=== PATIENT | male | born 1980 | race Caucasian/White ===

== ENCOUNTER → 2020-02-28 | Outpatient (CLI) | payer BC | END | disposition home or self-care (01) | LOC: LABWHC1 12:16 | PROVIDERS: ATTEND Internal Medicine Gastroenterology | DX: Z11.59 Encounter for screening for other viral diseases (principal) ==

== ENCOUNTER → 2020-03-01 | Day surgery (SDC) | payer BC ==
[2020-02-28 16:26] VITALS: BMI 43.7
[~2020-03-01] MED LIST: LACTATED RINGERS 1,000 ML IV SCH; LIDOCAINE 1% (10MG/ML) FOR IV START INTRADERMA PRN; LIDOCAINE 1% INJ 10MG/ML (20 ML MDV) ONE; PROPOFOL 10 MG/ML 20 ML VIAL IV ONE
[2020-03-01 08:23] VITALS: TEMP 97.1
--- NOTE | 2020-03-01 09:19 | P.PCN ---
Date of Procedure: 03/01/20 Procedure(s) Performed: BRIEF HISTORY: Patient is a 39-year-old pleasant white male scheduled for an elective colonoscopy as a part of evaluation change in bowel habits and family history of colon cancer. His grandmother was diagnosed with colon cancer at age 70. PROCEDURE PERFORMED: Colonoscopy. PREOPERATIVE DIAGNOSIS: Change in bowel habits and family history of colon cancer. IV sedation per Anesthesia. PROCEDURE: After informed consent was obtained, the patient, was brought into the endoscopy unit. IV sedation was administered by Anesthesia under continuous monitoring. Digital rectal examination was normal. Initially the Olympus CF-160 flexible video colonoscope was then inserted in the rectum, gradually advanced into the cecum without any difficulty. Careful examination was performed as the scope was gradually being withdrawn. Ileocecal valve and the appendiceal orifice were visualized and appeared normal. Prep was excellent. Mucosa of the cecum, ascending colon, transverse colon, descending colon, sigmoid colon, and rectum appeared normal. Retroflexion was performed in the rectum and no lesions were seen. The patient tolerated the procedure well. IMPRESSION: Normal-appearing colon from rectum to cecum with no evidence of colitis or colorectal neoplasia . RECOMMENDATIONS: Findings of this examination were discussed with the patient as well as his family. He was advised to have a repeat screening colonoscopy in 10 years.
[2020-03-01 09:25] VITALS: RESP 16
[2020-03-01 09:38] VITALS: BP 138/79; PULSE 72
== END ==
LOC: ORWHC2ENDO 08:00
PROVIDERS: ATTEND Internal Medicine Gastroenterology
DX: R19.4 Change in bowel habit (principal); Z80.0 Family history of malignant neoplasm of digestive organs; J45.909 Unspecified asthma, uncomplicated; F41.9 Anxiety disorder, unspecified; F90.9 Attention-deficit hyperactivity disorder, unspecified type; F41.0 Panic disorder [episodic paroxysmal anxiety]; K21.9 Gastro-esophageal reflux disease without esophagitis; E66.01 Morbid (severe) obesity due to excess calories; Z79.899 Other long term (current) drug therapy; Z68.45 Body mass index [BMI] 70 or greater, adult
CPT/HCPCS: 45378; J2001; J2704

== ENCOUNTER 2024-07-12 19:59 | Emergency (ER) | payer BC ==
[2024-07-12 20:15] VITALS: RESP 18; TEMP 98.1
[2024-07-12] MEDS: CYCLOBENZAPRINE 10 MG TAB PO STA (22:20)
[2024-07-12] MEDS: LIDOCAINE 4% PATCH TOPICAL ONE (22:21)
[2024-07-12] MEDS: KETOROLAC 15 MG/ML 1 ML VIAL IM STA (22:22)
[2024-07-12] MEDS: MORPHINE SULFATE 4 MG/ML SYRINGE IM STA (23:53)
[2024-07-12] MEDS: predniSONE 20 MG TAB PO STA (23:56)
--- NOTE | 2024-07-13 00:34 | ED ---
Back Pain HPI - General Chief Complaint: Back Pain/Injury Stated Complaint: Back Pain Source: patient Limitations: no limitations - Related Data Home Medications Medication Instructions Recorded Confirmed ALPRAZolam [Xanax] 1 mg PO BID PRN 02/28/20 02/28/20 Albuterol Inhaler [Ventolin Hfa 2 puff INHALATION RT-QID PRN 02/28/20 03/01/20 Inhaler] Cholecalciferol [Vitamin D3 (25 5,000 unit PO DAILY 02/28/20 03/01/20 Mcg = 1000 Iu)] Dextroamphetamine/Amphetamine 20 mg PO BID 02/28/20 03/01/20 [Adderall] Mv-Min/Folic/K1/Lycopen/Lutein 1 each PO DAILY 02/28/20 02/28/20 [Centrum Silver Men Tablet] Naproxen Sodium [Aleve] 440 mg PO BID PRN 02/28/20 02/28/20 Previous Rx's Medication Instructions Recorded Cyclobenzaprine [Flexeril] 10 mg PO TID PRN #30 tab 07/13/24 predniSONE [Deltasone] 20 mg PO BID #10 tab 07/13/24 Allergies Allergy/AdvReac Type Severity Reaction Status Date / Time No Known Allergies Allergy Verified 07/12/24 20:15 Review of Systems ROS Statement: Those systems with pertinent positive or pertinent negative responses have been documented in the HPI. ROS Other: All systems not noted in ROS Statement are negative. Past Medical History Past Medical History: Asthma, GERD/Reflux, Musculoskeletal Disorder Additional Past Medical History / Comment(s): Hx bowel changes, family hx colon cancer. Has herniated discs lumbar area. History of Any Multi-Drug Resistant Organisms: None Reported Additional Past Surgical History / Comment(s): Epidural inj Past Anesthesia/Blood Transfusion Reactions: No Reported Reaction Past Psychological History: ADD/ADHD, Anxiety, Panic Disorder Smoking Status: Never smoker Past Alcohol Use History: Occasional Past Drug Use History: Marijuana - Past Family History Mother Family Medical History: No Reported History Additional Family Medical History / Comment(s): Paternal Grandmother - cancer. Maternal Grandmother - colon cancer General Exam Limitations: no limitations Course Vital Signs 07/12/24 20:13 Temperature 98.1 F Pulse Rate 79 Respiratory 18 Rate Blood Pressure 159/88 O2 Sat by Pulse 97 Oximetry Disposition Clinical Impression: Back pain, Lumbar radiculopathy Disposition: HOME SELF-CARE Condition: Stable Instructions (If sedation given, give patient instructions): Acute Low Back Pain (ED) Additional Instructions: Please take the medications as they are instructed. Follow-up with your doctor and return for any new or worsening symptoms Prescriptions: predniSONE [Deltasone] 20 mg PO BID #10 tab Cyclobenzaprine [Flexeril] 10 mg PO TID PRN #30 tab PRN Reason: Muscle Spasm Is patient prescribed a controlled substance at d/c from ED?: No Referrals: Theron Mcneil DO [Primary Care Provider] - 1-2 days Time of Disposition: 00:34
[2024-07-13 00:43] VITALS: BP 152/95; PULSE 57
== END 2024-07-13 00:41 | disposition home or self-care (01) ==
LOC: EC 19:59
DX: M54.16 Radiculopathy, lumbar region (principal)
CPT/HCPCS: 96372; 99283